=== PATIENT | male | born 1985 | race Caucasian/White ===

== ENCOUNTER 2024-02-17 21:14 | Emergency (ER) | payer BC ==
[2024-02-17 21:19] VITALS: BP 136/82; O2SAT 100
--- NOTE | 2024-02-17 21:43 | ED Physician Documentation ---
PD HPI SKIN - Stated complaint Stated Complaint: R LEG LAC - Chief complaint Chief Complaint: Laceration - Additional information Additional information: 38-year-old male up-to-date with tetanus shot and other immunizations presents emergency department for right hutton laceration. Patient says that he was [place] dump and a piece of porcelain cut the hutton of his right leg. He is worried because he has been having a hard time controlling the bleeding, bleeding is now well-controlled. He said that he has washed with soap and water at home. PD PAST MEDICAL HISTORY - Past Medical History Past Medical History: Yes Cardiovascular: None Respiratory: None Neuro: None Endocrine/Autoimmune: None GI: None : None HEENT: None Psych: None Musculoskeletal: None Derm: None - Past Surgical History Past Surgical History: No - Present Medications Home Medications: Ambulatory Orders Medication Instructions Recorded Confirmed No Known Home Medications 02/17/24 02/17/24 - Allergies Allergies/Adverse Reactions: Allergies Allergy/AdvReac Type Severity Reaction Status Date / Time No Known Drug Allergies Allergy Verified 02/17/24 21:16 - Social History Does the pt smoke?: No Smoking Status: Never smoker Does the pt drink ETOH?: No Does the pt have substance abuse?: No - Immunizations Immunizations are current?: Yes - POLST Patient has POLST: No PD ED PE NORMAL - Vitals Vital signs reviewed: Yes - General General: Alert and oriented X 3, No acute distress, Well developed/nourished - Derm Derm: Other (1 cm laceration across right hutton in the mid anterior region. Bleeding well-controlled. No erythema.) Results - Vitals Vitals: Vital Signs - 24 hr 02/17/24 21:16 Temperature 36.5 C Heart Rate 68 Respiratory 16 Rate Blood Pressure 136/82 H O2 Saturation 100 Oxygen O2 Source Room air Procedures - Laceration (location) Right hutton Length in cm: 1 (Right anterior hutton) Wound type: Linear, Superficial, Clean Wound preparation: Irrigated copiously NS, Wound explored, To the base Skin layer closure: Dermabond, Steri strips Other: Patient tolerated well, No complications, Dressing applied, Tetanus UTD PD Medical Decision Making - ED course ED course: 38-year-old male presents emergency department for laceration to right hutton that happened several hours ago. He was worried because he thought that the bleeding was not stopping at this point in time bleeding has now fully stopped we have irrigated and cleansed the wound it does not appear to have any foreign body. Wound was well-approximated with Dermabond and Steri-Strips no complications. Tetanus is already up-to-date he was taught signs symptoms of infection return precautions and how to manage wound at home. Departure - Departure Disposition: 01 Home, Self Care Instructions: ED Fx Nose W Lac Skin Glue Comments: Thank you for trusting us with your care as we discussed keep the Steri-Strips on for the next 10 days if they come off on their own just keep the wound covered with antibiotic ointment and Band-Aid until it heals. Watch out for signs symptoms of infection which include redness, swelling, drainage that is ye llow or green or fevers or chills. If this happens please present back to the emergency department. Forms: PCP List Discharge Date/Time: 02/17/24 22:12
== END 2024-02-17 22:12 | disposition home or self-care (01) ==
LOC: ED 21:14
DX: S81.811A Laceration without foreign body, right lower leg, initial encounter (principal); W26.8XXA Contact with other sharp object(s), not elsewhere classified, initial encounter; Y93.89 Activity, other specified; Y92.89 Other specified places as the place of occurrence of the external cause
CPT/HCPCS: 12001; 99283